=== PATIENT | male | born 1985 | race Two or more races ===

== ENCOUNTER 2024-09-18 18:38 | Inpatient (IN) | payer OTHER ==
[~2024-09-18] VITALS: Ht 177.8 cm; Wt 81.6 kg
[2024-09-18] MEDS ORDERED: AMLODIPINE-OLM1 EAC2 PO (18:57)
[2024-09-18] MEDS ORDERED: LOSARTAN POTAS100 MG PO (18:58)
[2024-09-18] MEDS ORDERED: LACTOBACILLUS ACIDOPHILUS 1 CAP CAP PO ONE ×2 (21:57→22:00)
[2024-09-18] MEDS ORDERED: METRONIDAZOLE/SODIUM CHLORIDE 500 MG/100 ML PIGGYBACK IV ONE ×2 (21:57→22:00)
[2024-09-18] MEDS ORDERED: 0.9 % SODIUM CHLORIDE 1,000 ML IV SCH (22:00)
[2024-09-18 23:12] LABS: HEMATOCRIT 38.7 % (39.0-48.0); HEMOGLOBIN 13.1 g/dL (13-16.00); MEAN CELL VOLUME 87.4 fL (80.0-100.00); MEAN CORPUSCULAR HEMOGLOBIN 29.6 pg (27.00-32.0); MEAN CORPUSCULAR HGB CONC 33.9 g/dl (32.0-36.0); PLATELET COUNT 276 K/uL (150-450); RED BLOOD COUNT 4.42 M/uL (4.00-6.00); RED CELL DISTRIBUTION WIDTH 13.5 % (11.5-14.5)
[2024-09-18 23:27] LABS: ALBUMIN 4.1 gm/dL (3.4-5.0); BILIRUBIN TOTAL 0.5 mg/dL (0.3-1.2); CALCIUM 9.7 mg/dL (8.5-10.1); CREATININE SERUM 0.96 mg/dL (0.70-1.30); GFR 87.66; GLOBULINA 4.2 G/DL (2.4-3.5); POTASSIUM 3.63 mEq/L (3.5-5.1); TOTAL PROTEIN 8.3 gm/dL (6.4-8.2)
[2024-09-19] MEDS ORDERED: 0.9 % SODIUM CHLORIDE 1,000 ML IV STA (03:07)
[2024-09-19] MEDS ORDERED: CIPROFLOXACIN IN 5 % DEXTROSE 400 MG/200 ML PIGGYBAG IV STA (03:08)
[2024-09-19] MEDS ORDERED: MEPERIDINE HCL/PF 50 MG/ML VIAL IM STA (03:09)
[2024-09-19] MEDS ORDERED: PROMETHAZINE HCL 50 MG/ML AMPUL IM STA (03:10)
[2024-09-19] MEDS ORDERED: HYOSCYAMINE SULFATE 0.125 MG TAB.SUBL SL ONE (03:15)
[2024-09-19] MEDS ORDERED: HYOSCYAMINE SULFATE 0.125 MG TAB.SUBL ONE (03:40)
[2024-09-19] MEDS ORDERED: CIPROFLOXACIN IN 5 % DEXTROSE 400 MG/200 ML PIGGYBAG IV ONE ×2 (03:41→21:49)
[2024-09-19] MEDS ORDERED: PROMETHAZINE HCL 50 MG/ML AMPUL IM ONE (03:41)
[2024-09-19] MEDS ORDERED: PROMETHAZINE HCL 25 MG/ML AMPUL IM PRN (17:45)
[2024-09-19] MEDS ORDERED: ONDANSETRON HCL 4 MG in 0.9 % SODIUM CHLORIDE 50 ML IV PRN (17:45)
[2024-09-19] MEDS ORDERED: MEPERIDINE HCL 25 MG/ML AMPUL IM PRN (17:45)
[2024-09-19] MEDS ORDERED: 0.9 % SODIUM CHLORIDE 1,000 ML IV SCH (17:45)
[2024-09-19] MEDS ORDERED: CIPROFLOXACIN IN 5 % DEXTROSE 200 ML IV SCH (21:00)
[2024-09-19] MEDS ORDERED: PANTOPRAZOLE SODIUM 40 MG/VIAL VIAL IV SCH (21:00)
[2024-09-20] MEDS ORDERED: METRONIDAZOLE/SODIUM CHLORIDE 100 ML IV SCH (01:00)
[2024-09-20 01:51] VITALS: BP 149/76; O2SAT 98
[2024-09-20 07:27] LABS: HEMATOCRIT 36.6 % (39.0-48.0); HEMOGLOBIN 12.5 g/dL (13-16.00); MEAN CORPUSCULAR HEMOGLOBIN 29.7 pg (27.00-32.0); MEAN CORPUSCULAR HGB CONC 34.1 g/dl (32.0-36.0); PLATELET COUNT 247 K/uL (150-450); RED BLOOD COUNT 4.21 M/uL (4.00-6.00); RED CELL DISTRIBUTION WIDTH 13.3 % (11.5-14.5)
[2024-09-20 07:55] VITALS: BP 146/83; O2SAT 96
[2024-09-20 08:16] LABS: CALCIUM 8.8 mg/dL (8.5-10.1); CREATININE SERUM 0.88 mg/dL (0.70-1.30); GFR 96.92; POTASSIUM 4.27 mEq/L (3.5-5.1)
[2024-09-20 08:25] LABS: C-REACTIVE PROTEIN 9.84 MG/DL (0.00-0.29)
[2024-09-20] MEDS ORDERED: LOSARTAN POTASSIUM 100 MG TABLET PO SCH (09:00)
[2024-09-20] MEDS ORDERED: AMLODIPINE BESYLATE 5 MG TABLET PO SCH (09:00)
[2024-09-20] MEDS ORDERED: ACETAMINOPHEN 500 MG GEL..CAP PO PRN (16:30)
[2024-09-20 16:59] VITALS: BP 156/98
[2024-09-21 03:03] VITALS: BP 125/60; O2SAT 98
[2024-09-21 08:20] VITALS: BP 120/60
== END 2024-09-21 12:46 | disposition home or self-care (01) | DRG 392 ==
LOC: ER 18:41 → MEDI 09-19 18:33
PROVIDERS: Emergency Medicine; General Practice; ADMIT Internal Medicine; ATTEND Internal Medicine
DX: K57.32 Diverticulitis of large intestine without perforation or abscess without bleeding (principal)